=== PATIENT | female | born 1975 | race Caucasian/White ===

== ENCOUNTER → 2018-12-25 | Outpatient (CLI) | payer BC | LOC: DIA.ED 12:41 | DX: O24.419 Gestational diabetes mellitus in pregnancy, unspecified control (principal); Z3A.32 32 weeks gestation of pregnancy | CPT/HCPCS: G0108 ==

== ENCOUNTER → 2019-01-07 | Outpatient (CLI) | payer BC | LOC: DIA.ED 08:56 | DX: O24.419 Gestational diabetes mellitus in pregnancy, unspecified control (principal); Z3A.32 32 weeks gestation of pregnancy | CPT/HCPCS: G0108 ==

== ENCOUNTER → 2019-01-22 | Outpatient (CLI) | payer BC | LOC: DIA.ED 10:42 | DX: O24.419 Gestational diabetes mellitus in pregnancy, unspecified control (principal); Z3A.22 22 weeks gestation of pregnancy | CPT/HCPCS: G0108 ==

== ENCOUNTER → 2019-02-05 | Outpatient (CLI) | payer BC | LOC: DIA.ED 12:58 | DX: O24.419 Gestational diabetes mellitus in pregnancy, unspecified control (principal); Z3A.25 25 weeks gestation of pregnancy | CPT/HCPCS: G0108 ==

== ENCOUNTER 2019-02-24 06:35 | Outpatient (CLI) | payer BC ==
[~2019-02-24] VITALS: Ht 162.6 cm; Wt 137.7 kg
[2019-02-24 06:12] VITALS: BP 121/69; PULSE 89; TEMP 98
--- NOTE | 2019-02-24 06:40 | NUR ---
0640- Pt arrives on unit ambulatory for scheduled external version. Pt and oriented to room. Pt into bathroom to change into gown. 0646- EFM and TOCO on and tracing. Assessment completed. VSS. Consent signed and explained. Call light within reach.
[2019-02-24] MEDS ORDERED: LEVOXYL0.125 MG PO (06:53)
[2019-02-24] MEDS ORDERED: CONCEPT DHA1 CAP PO (06:54)
--- NOTE | 2019-02-24 07:35 | NUR ---
0724- Terbutaline given per MD order. 0728- Dr Warren at bedside. Discusses external version with Pt and , they deny questions at this time. EFM and TOCO off. Bedside US completed by MD. 0731- Dr Charles at bedside to assist. 0732- Abdominal manipulation started by Dr Warren. 0735- Version successful, confirmed with bedside US. 0736- EFM and TOCO on and tracing. VORB from Dr Warren to monitor for 1hr then can discharge home with precautions. Follow-up as scheduled. Pt denies cramping or LOF.
[2019-02-24 08:00] VITALS: BP 132/71; PULSE 84
[2019-02-24 08:29] VITALS: BP 125/75; PULSE 83
--- NOTE | 2019-02-24 08:40 | NUR ---
0820- Dr Warren at nurses [facility], reviews LUIS F pinto that Pt may be discharged home with labor precautions. 0829- EFM and TOCO off. Pt up to change into street clothes. 0840- Discharge paperwork given and explained. Pt denies questions. Pt ambulates off unit in stable condition with .
== END 2019-02-24 08:40 | disposition home or self-care (01) ==
LOC: LDRO 06:35
DX: O32.1XX0 Maternal care for breech presentation, not applicable or unspecified (principal); Z3A.37 37 weeks gestation of pregnancy
CPT/HCPCS: J3105

== ENCOUNTER 2019-03-11 07:14 | Inpatient (IN) | payer BC ==
[2019-03-11] VITALS (40 sets, daily range): BP systolic 123–160; BP diastolic 59–91; PULSE 67–88; TEMP 98.1–98.4
[~2019-03-11] VITALS: Ht 162.6 cm; Wt 135.9 kg
[~2019-03-11 07:14] MED LIST: CONCEPT DHA1 CAP PO; LEVOXYL0.125 MG PO
--- NOTE | 2019-03-11 08:05 | NUR ---
0730 PATIENT HERE FOR INDUCTION OF LABOR. EFM ON FHT 130 GOOD ACCELERATIONS. BABY VERY ACTIVE. ASSESSMENT COMPLETED. IV STARTED IN LEFT WRIST AND LABS DRAWN AT SAME TIME.SVE UNCHANGED FROM OFFICE.
[2019-03-11 09:28] LABS: GRAN % 64.8 % (42.2-75.2); HEMATOCRIT 33.1 % (37.0-47.0); HEMOGLOBIN 10.4 g/dl (12.5-16.0); MEAN CELL VOLUME 81 fl (80.0-100.0); MEAN CORPUSCULAR HEMOGLOBIN 25 pg (27.0-31.0); MEAN CORPUSCULAR HGB CONC 31 g/dl (33.0-37.0); MEAN PLATELET VOLUME 10.2 fl (7.4-10.4); PLATELET COUNT 349 K/mm3 (130-400); RED BLOOD COUNT 4.11 M/mm3 (4.10-5.30); REDCELL DISTRIBUTION WIDTH-CV 15.9 % (11.5-14.5)
[2019-03-11 09:29] LABS: BASO % 0.2 % (0.0-2.0); EOS # 0.2 (0.0-0.7); EOS % 1.5 % (0-4.0); GRAN # 7.1 (1.4-6.5); LYMPH # 2.5 (1.2-3.4); LYMPH % 22.5 % (20.0-51.0); MONO # 1.2 (0.1-0.6); MONO % 10.9 % (1.7-9.3)
--- NOTE | 2019-03-11 11:39 | NUR ---
1130 DR CHOU AT BEDSIDE. SONO DONE TO CONFIRM PRESENTING PART. AROM WITH AMNIOHOOK LARGE AMOUNT OF CLEAR FLUID NOTED
--- NOTE | 2019-03-11 13:05 | NUR ---
0600 BLOOD SUGAR 81 0800 BLOOD SUGAR 83 1000 BLOOD SUGAR 79 1200 BLOOD SUGAR 84
--- NOTE | 2019-03-11 14:34 | NUR ---
1400 PATIENT IS WANTING A EPIDURAL, KEV GUILLAUME ORDER EDITOR AT BEDSIDE. 1420 EPIDURAL PLACEMENT AT THIS TIME, PATIENT TOLERATES WELL SEE KEV ORDER EDITOR NOTES FOR QUESTIONS.
--- NOTE | 2019-03-11 16:38 | NUR ---
1550 PATIENT FEELS PRESSURE AND WANTING TO PUSH. DR CHOU CALLED TO COME NOW FOR DELIVERY. 1600 DR CHOU HERE FOR DELIVERY. 1607 BABY GIRL BORN VIA BY DR CHOU. CORD CLAMPED AND CUT BY . AND PATIENT AND BABY TO MOMS CHEST. TERMINAL MECONIUM NOTED. 1610 PLACENTA DELIVERED AT THIS TIME WITH LARGE AMOUNT OF BLEEDING NOTED. FUNDUS BOGGY AND MASSAGED UNTIL FIRM. CYTOTEC 800 MG GIVEN RECTALLY BY DR CHOU AT THIS TIME. PITOCIN STARTED AT 333/ PER PROTOCOL. [address] CHOU. FUNDUD FIRM WITH SMALL AMOUNT OF BLEEDING NOTED. BABY REMAINS ON MOM CHEST.
--- NOTE | 2019-03-11 19:45 | NUR ---
Up to bathroom with steady gait, voids large amount. Performs own pericare after instruction, clean gown on. To post- room via wheelchair. Oreinted to room, call light and plan of care. Questions invited and answered.
[2019-03-12 01:45] VITALS: BP 144/80; PULSE 84; TEMP 98.3
[2019-03-12 07:03] LABS: HEMATOCRIT 30.2 % (37.0-47.0); HEMOGLOBIN 9.6 g/dl (12.5-16.0)
[2019-03-12 07:40] VITALS: BP 110/53; PULSE 74; TEMP 98.5
--- NOTE | 2019-03-12 08:59 | NUR ---
Initial visit; Parents thanked Information Consultant for offering congratulaions and God's blessings for the of their daughter. Information Consultant thanked family for choosing [facility].
[2019-03-12 12:30] VITALS: BP 127/75; PULSE 81; TEMP 98.3
[2019-03-12 16:35] VITALS: BP 139/83; PULSE 75; TEMP 98.1
[2019-03-12 21:15] VITALS: BP 155/89; PULSE 74; TEMP 98.1
[2019-03-13 00:45] VITALS: BP 148/88; PULSE 68
[2019-03-13 08:45] VITALS: BP 145/87; PULSE 70; TEMP 97.7
--- NOTE | 2019-03-13 08:45 | NUR ---
Rests in bed, alert. Ibuprofen 600 mg given per request and as ordered.
[2019-03-13] MEDS ORDERED: IBU600 MG PO (08:58)
== END 2019-03-13 12:20 | disposition home or self-care (01) | DRG 807 ==
LOC: LDR 07:14 → OB 07:14
PROVIDERS: ADMIT Obstetrics & Gynecology
PROC: 10E0XZZ Delivery of Products of Conception, External Approach (ICD-10-PCS; principal; 2019-03-11)
PROC: 0KQM0ZZ Repair Perineum Muscle, Open Approach (ICD-10-PCS; 2019-03-11)
PROC: 10907ZC Drainage of Amniotic Fluid, Therapeutic from Products of Conception, Via Natural or Artificial Opening (ICD-10-PCS; 2019-03-11)
PROC: 3E033VJ Introduction of Other Hormone into Peripheral Vein, Percutaneous Approach (ICD-10-PCS; 2019-03-11)
DX: O24.420 Gestational diabetes mellitus in childbirth, diet controlled (principal); Z37.0 Single live birth; O99.824 Streptococcus B carrier state complicating childbirth; O34.13 Maternal care for benign tumor of corpus uteri, third trimester; D25.9 Leiomyoma of uterus, unspecified; O99.214 Obesity complicating childbirth; E66.9 Obesity, unspecified; O99.02 Anemia complicating childbirth; D64.9 Anemia, unspecified; O99.284 Endocrine, nutritional and metabolic diseases complicating childbirth; E03.9 Hypothyroidism, unspecified; O70.1 Second degree perineal laceration during delivery; O77.0 Labor and delivery complicated by meconium in amniotic fluid; O13.4 Gestational [pregnancy-induced] hypertension without significant proteinuria, complicating childbirth; Z3A.39 39 weeks gestation of pregnancy; Z23 Encounter for immunization
CPT/HCPCS: J2540; J2590; J7120

== ENCOUNTER → 2020-12-12 | Outpatient (CLI) | payer BC ==
[~2020-12-12] MED LIST changes: +IBU600 MG PO
== END ==
LOC: COL.RAD 11:59
DX: T83.39XA Other mechanical complication of intrauterine contraceptive device, initial encounter (principal)

== ENCOUNTER 2022-10-17 09:40 | Outpatient (RCR) | payer BC | END 2022-10-28 | disposition home or self-care (01) | LOC: PT.GENESIS | DX: M76.62 Achilles tendinitis, left leg (principal) ==

== ENCOUNTER 2023-02-18 10:15 | Outpatient (RCR) | payer BC | END 2023-02-28 | disposition home or self-care (01) | LOC: PT.GENESIS | DX: M76.62 Achilles tendinitis, left leg (principal); M25.551 Pain in right hip; M25.552 Pain in left hip; M25.561 Pain in right knee; M25.562 Pain in left knee; M54.50 Low back pain, unspecified ==